=== PATIENT | male | born 2000 | race Caucasian/White ===

== ENCOUNTER 2023-03-29 17:11 | Emergency (ER) | payer OTHER ==
[~2023-03-29] VITALS: Ht 175.3 cm; Wt 100.7 kg
[2023-03-29] MEDS ORDERED: ACETAMINOPHEN 500 MG TAB PO ONE (19:35)
[2023-03-29 20:29] LABS: RSV AMPLIFICATION NEGATIVE (NEGATIVE)
[2023-03-29] MEDS ORDERED: KETOROLAC 30 MG/ML 1ML VIAL IV ONE (22:10)
[2023-03-29] MEDS ORDERED: dexAMETHasone 20MG/5ML VIAL IV ONE (22:10)
[2023-03-29] MEDS ORDERED: METHOCARBAMOL 1,000 MG/10 ML VIAL IV ONE (22:10)
[2023-03-29 23:17] VITALS: BP 113/51; TEMP 99.3; O2SAT 97
[2023-03-29] MEDS ORDERED: MEDR4PAK PO (23:56)
[2023-03-29] MEDS ORDERED: IBUP-1022 PO (23:56)
[2023-03-29] MEDS ORDERED: METH-1164 PO (23:56)
[2023-03-30] MEDS ORDERED: methocarbamoL 500 MG TAB PO ONE
== END 2023-03-30 00:57 | disposition home or self-care (01) ==
LOC: M ED 17:11
DX: M54.50 Low back pain, unspecified (principal); J06.9 Acute upper respiratory infection, unspecified; F17.290 Nicotine dependence, other tobacco product, uncomplicated
CPT/HCPCS: 72131; 87430; 87631; 96374; 96375; 99284; J1100; J1885; J2800